=== PATIENT | female | born 1980 | race Caucasian/White ===

== ENCOUNTER 2022-02-17 12:45 | Outpatient (CLI) | payer BC, SELFPAY ==
[2022-02-17 10:13] LABS: Cholesterol* 187 mg/dL (90-199); Glucose* 89 mg/dL (60-115); Triglycerides* 87 mg/dL (40-149)
[2022-02-17 10:14] LABS: HDL Cholesterol* 81 mg/dL (>=50); LDL Cholesterol Calculated 89 mg/dL (<100)
== END 2022-02-17 12:46 | disposition home or self-care (01) ==
PROVIDERS: PCP Family Medicine; Visit Provider Family Medicine
DX: Z13.6 Encounter for screening for cardiovascular disorders (principal); Z13.1 Encounter for screening for diabetes mellitus
CPT/HCPCS: 80061; 82947

== ENCOUNTER 2022-07-22 17:38 | Emergency (ER) | payer MEDICAID, SELFPAY ==
[2022-07-22 17:51] VITALS: BP 108/62; PULSE 79; RESP 16; TEMP 36.6; O2SAT 100; BMI 22.2
--- NOTE | 2022-07-22 18:06 | ED.GENADULT ---
HPI - General Adult General Date Seen: 07/22/22 Chief complaint: Nausea/Vomiting Stated complaint: Vomiting Time Seen by Provider: 07/22/22 17:49 Source: patient Mode of arrival: ambulatory Limitations: no limitations History of Present Illness HPI narrative: Patient is a 42-year-old female who awoke this morning with a migraine. She took her Imitrex and try to go back to sleep. She then began vomiting and has been able to stop throughout the day today. She has taken Tylenol with no relief. She has not been to the ER for migraine in three or four years. She has had no fevers or chills. No other symptoms of illness. No abdominal pain. Related Data Previous Rx's Medication Instructions Recorded sumatriptan succinate 100 mg tablet 100 mg PO .PRN PRN migraine 02/24/22 headache #9 tabs sertraline 100 mg tablet 100 mg PO QDAY #90 tabs 05/05/22 ondansetron 8 mg disintegrating 8 mg PO Q8H PRN nausea and 07/22/22 tablet vomiting #20 tabs Allergies Allergy/AdvReac Type Severity Reaction Status Date / Time aspirin Allergy Intermediate Hives Verified 07/22/22 17:51 ibuprofen Allergy Intermediate Hives Verified 07/22/22 17:51 salicylates Allergy Mild Hives Verified 07/22/22 17:51 Review of Systems Narrative: Review of systems is as outlined above otherwise noted to be negative. She does have anxiety and depression and takes sertraline for that. PFSH PFS Medical History Anxiety (12/01/11) Depression Migraine syndrome Ovarian cyst (01/12/09) Tobacco use (01/12/09) Surgical History (Updated 07/22/22 @ 18:07 by Atif Connell MD) H/O nasal septoplasty S/P (01/12/09) Wrist fracture Social History Smoking Status: Former smoker Little interest or pleasure in doing things: several days Feeling down, depressed, or hopeless: several days Exam Narrative: Exam Narrative: Vitals noted. HEENT: Conjunctiva clear. Neck is supple without adenopathy. Lungs: Clear to auscultation in all lopez. No wheezes, rales, rhonchi. Heart: Regular rate and rhythm without murmur. Abdomen: Soft and nontender. No guarding, rigidity, rebound. Bowel sounds are normal. No palpable masses. Extremities: No cyanosis or edema. Good distal pulses. Skin: No abnormalities noted of the exposed skin. Neurologic: Awake, alert, fully oriented. Neurologic exam is nonfocal. Const: Vital Signs, click to edit/add: Vital Signs - 24 hr 07/22/22 17:51 07/22/22 19:26 Temperature 98 F Pulse Rate [Pulse Oximeter] 79 68 Respiratory Rate 16 18 Blood Pressure [Ri t Upper Arm] 108/62 110/68 Pulse Oximetry 100 98 Oxygen Delivery Me thod Room Air Nasal Cannula Course Course Hospital Course: Patient was seen and examined. No indication for labs or imaging at this point. IV is established she is given a L of normal saline. She is allergic to Toradol and other NSAIDs. She is given fentanyl 50 mcg IV along with a L of normal saline and Zofran 4 mg IV. Reevaluation(s) Reevaluation #1: Patient's nausea and headache have resolved and she was sleeping in the exam room. Her daughter will take her home and get her to bed. I have sent some Zofran to her pharmacy to fill tomorrow. Vital Signs Vital signs: Initial Vital Signs Temperature 98 F 07/22/22 17:51 Temperature Source Temporal Artery Scan 07/22/22 17:51 Pulse Rate 79 07/22/22 17:51 Respiratory Rate 16 07/22/22 17:51 Blood Pressure 108/62 07/22/22 17:51 Blood Pressure Mean 77 07/22/22 17:51 Blood Pressure Position Sitting 07/22/22 17:51 Pulse Oximetry 100 07/22/22 17:51 Oxygen Delivery Method 07/22/22 17:51 Vital Signs Temperature 98 F 07/22/22 17:51 Pulse Rate 79 07/22/22 17:51 Respiratory Rate 16 07/22/22 17:51 Blood Pressure 108/62 07/22/22 17:51 Pulse Oximetry 100 07/22/22 17:51 Oxygen Delivery Method 07/22/22 17:51 Temperature 98 F 07/22/22 17:51 Pulse Rate 68 07/22/22 19:26 Respiratory Rate 18 07/22/22 19:26 Blood Pressure 110/68 07/22/22 19:26 Pulse Oximetry 98 07/22/22 19:26 Oxygen Delivery Method 07/22/22 19:26 Medical Decision Making MDM Narrative Medical decision making narrative: She has a typical migraine with nausea and vomiting. Treatment resolved with pain medicine, IV fluids, Zofran. She will go home and go to bed. Zofran has been sent for pharmacy. Discharge Plan Discharge Clinical Impression: Migraine syndrome Patient Disposition: Home, Self-Care Condition: Improved Instructions: Migraine Headache (ED) Additional Instructions: Go home and try to go to sleep. Continue use of Imitrex as needed. Zofran 8 mg every 8 hours as needed for nausea. Follow-up in the clinic if symptoms are not improving. Prescriptions: New ondansetron 8 mg tablet,disintegrating 8 mg PO Q8H PRN (Reason: nausea and vomiting) Qty: 20 0RF No Action sumatriptan succinate 100 mg tablet 100 mg PO .PRN PRN (Reason: migraine headache) Qty: 9 11RF sertraline 100 mg tablet 100 mg PO QDAY Qty: 90 3RF Follow Up/Referrals: Roby Flores MD [Primary Care Provider] - Stand Alone Forms: [employer] [facility] Info Instructions
[2022-07-22] MEDS: 0.9 % SODIUM CHLORIDE 1000 ml 1,000 ML IV (18:33)
[2022-07-22] MEDS: ONDANSETRON 2 MG/ML inj 4 MG IVP (18:33)
[2022-07-22 19:26] VITALS: BP 110/68; PULSE 68; RESP 18; O2SAT 98
== END 2022-07-22 19:32 | disposition home or self-care (01) ==
PROVIDERS: Emergency Provider Family Medicine; PCP Family Medicine
DX: G43.909 Migraine, unspecified, not intractable, without status migrainosus (principal)
CPT/HCPCS: 96374; 99282; 99283; J2405; J7030

== ENCOUNTER 2023-04-21 19:15 | Outpatient (CLI) | payer BC, SELFPAY ==
--- NOTE | 2023-04-21 19:30 | CRLHL7_ITS ---
For Patients: As a result of the Century Cures Act, medical imaging exams and procedure reports are released immediately into your electronic medical record. You may view this report before your referring provider. If you have questions, please contact your health care provider. BILATERAL SCREENING MAMMOGRAM WITH COMPUTER-AIDED DETECTION AND TOMOSYNTHESIS TECHNIQUE: CC and MLO views were obtained. These mammographic images have been obtained using full-field digital technique. These mammographic images were interpreted with the benefit of computer-aided detection. Breast Tomosynthesis was used in this interpretation. COMPARISON FILM: Baseline. FINDINGS: The breasts are extremely dense, which lowers the sensitivity of mammography IMPRESSION: There is no radiographic evidence for malignancy. ASSESSMENT: BI-RADS Category 1: Negative RECOMMENDATION: Routine screening mammogram in 1 year. A lay language report of this examination will be provided to the patient. Atif Chen M.D. Diagnostic Radiologist [email or web address] [email or web address] Transcribed: 6:35 p.john araiza/Dictated by: Atif Chen MD @ 04/22/2023 12:43:00 PM (Electronically Signed)
== END 2023-04-21 19:16 | disposition home or self-care (01) ==
LOC: MAMMO 19:16
PROVIDERS: PCP Family Medicine; Visit Provider Family Medicine
DX: Z12.31 Encounter for screening mammogram for malignant neoplasm of breast (principal); R92.2 Inconclusive mammogram
CPT/HCPCS: 77063; 77067

== ENCOUNTER 2023-07-18 12:14 | Emergency (ER) | payer BC, SELFPAY ==
[2023-07-18] VITALS (19 sets, daily range): BP systolic 100–105; BP diastolic 53–70; PULSE 48–80; RESP 24; TEMP 36.8; O2SAT 97–100; BMI 23.2
--- NOTE | 2023-07-18 12:40 | ED_ITS ---
HPI - General Adult General Chief complaint: Nausea/Vomiting Stated complaint: vomiting Time Seen by Provider: 07/18/23 12:16 History of Present Illness HPI narrative: c/o headache , my spine feels like there is a knife going into it and cant stop throwing up 43-year-old woman presenting to the emergency department with complaint of a headache. She feels like there is a knife at the base of her head. This is atypical and has her concerned. Admittedly has had pain in this area for months maybe years. Does have a history of migraines and tried her Imitrex. Has not had any fever or new rash. There has been no trauma. Concern of what might be going on in the neck and they are asking for further exam I believe this to mean imaging of the neck/base of the skull. No weakness is into her upper extremities. Is not feeling short of breath. No visual disturbances. Related Data Home Medications Medication Instructions Recorded Confirmed multivitamin (Daily Multi-Vitamin 1 tab PO QDAY 07/23/23 07/23/23 tablet) Previous Rx's Medication Instructions Recorded sumatriptan succinate 100 mg tablet 100 mg PO .PRN PRN migraine 05/14/23 headache #9 tabs bupropion HCl 150 mg 24 hr tablet, 150 mg PO QAM #90 tabs 07/14/23 extended release Allergies Allergy/AdvReac Type Severity Reaction Status Date / Time aspirin Allergy Intermediate Hives Verified 07/23/23 10:05 ibuprofen Allergy Intermediate Hives Verified 07/23/23 10:05 salicylates Allergy Mild Hives Verified 07/23/23 10:05 Review of Systems Status of ROS: Reports: 6 or more systems reviewed and unremarkable except as noted in History and below [facility] Medical History (Updated 07/23/23 @ 11:51 by Roby Flores MD) Depression ?F32.A - Depression, unspecified (ICD-10) Tobacco use (01/12/09) ?Z72.0 - Tobacco use (ICD-10) Ovarian cyst (01/12/09) ?N83.209 - Unspecified ovarian cyst, unspecified side (ICD-10) Anxiety (12/01/11) ?F41.9 - Anxiety disorder, unspecified (ICD-10) Migraine syndrome ?G43.909 - Migraine, unspecified, not intractable, without status migrainosus (ICD-10) Surgical History (Updated 07/22/22 @ 18:07 by Atif Connell MD) H/O nasal septoplasty ?Z98.890 - Other specified postprocedural states (ICD-10) Wrist fracture ?S62.109A - Fracture of unspecified carpal bone, unspecified wrist, initial encounter for closed fracture (ICD-10) S/P (01/12/09) ?Z98.891 - History of uterine scar from previous surgery (ICD-10) Social History (Updated 05/14/23 @ 16:33 by Sanna Smith ~ [facility]) What is your current living situation?: I presently have a place to live Problems where you live: no known problems In the past 12 months, utilities in danger of being shut off: no In past 12 months, lack of transportation kept you from medical appts, meetings, work, or getting things needed for daily living: no In the past 12 mos, have been you worried that your food would run out before you had money to buy more?: never true In the past 12 mos, the food you bought just didn't last and you didn't have money to buy more?: never true Smoking Status: Former smoker Do you use any of these nicotine containing products: Vaping Products How often do you have a drink containing alcohol: 4 or more times a week AUDIT-C Alcohol total score: 4 Non-prescribed substance use: denies use How often does anyone, including family, friends and others, physically hurt you : never How often does anyone, including family, friends and others, insult or talk down to you: never How often does anyone, including family, friends and others, threaten you with harm: never How often does anyone, including family, friends and others, scream or curse at you: never Little interest or pleasure in doing things: several days Feeling down, depressed, or hopeless: several days Exam Narrative: Exam Narrative: Seems to want to be still. Clearly uncomfortable. Head is atraumatic. Cranial nerves 2-12 intact. Demonstrating photophobia. Pupils are 3 mm and equal and appropriately reactive. Transitions gingerly. Does have some limitation of movement of her head/rotation to the left versus the right. No midline neck tenderness. Most tenderness appears to be in the paracervical and trapezial to periscapular musculature left greater than right. Sore also at the occipital insertions. Breathing easily. Heart in regular rate and rhythm. No facial swelling erythema tenderness. Temporal areas look to be normal without pulsatile swelling. Const: Vital Signs, click to edit/add: Vital Signs - 24 hr 07/18/23 12:28 07/18/23 12:42 07/18/23 12:45 Temperature 98.2 F Pulse Rate 80 48 L Pulse Rate [Pulse Oximeter] 70 Respiratory Rate 24 Blood Pressure [Ri ght Upper Arm] 105/70 Pulse Oximetry 100 100 100 Documenting provider has reviewed patient's vital signs: yes Course Vital Signs Vital signs: Initial Vital Signs Temperature 98.2 F 07/18/23 12:28 Temperature Source Temporal Artery Scan 07/18/23 12:28 Pulse Rate 70 07/18/23 12:28 Respiratory Rate 24 07/18/23 12:28 Blood Pressure 105/70 07/18/23 12:28 Blood Pressure Mean 81 07/18/23 12:28 Blood Pressure Position Semi-Fowlers 07/18/23 12:28 Pulse Oximetry 100 07/18/23 12:28 Vital Signs Temperature 98.2 F 07/18/23 12:28 Pulse Rate 70 07/18/23 12:28 Respiratory Rate 24 07/18/23 12:28 Blood Pressure 105/70 07/18/23 12:28 Pulse Oximetry 100 07/18/23 12:28 Temperature 98.2 F 07/18/23 12:28 Pulse Rate 80 07/18/23 18:00 Respiratory Rate 24 07/18/23 12:28 Blood Pressure 100/53 L 07/18/23 13:02 Pulse Oximetry 100 07/18/23 18:00 Medications Administered Medications: Discontinued Medications Generic Name Dose Route Start Last Admin Trade Name Freq PRN Reason Stop Dose Admin Dexamethasone 10 mg 07/18/23 13:00 07/18/23 13:37 Dexamethasone 10 Mg/Ml Inj PO 07/18/23 13:01 10 mg ONCE ONE Administration Diphenhydramine HCl 12.5 mg 07/18/23 13:00 07/18/23 13:36 Diphenhydramine 50 Mg/Ml Inj IVP 07/18/23 13:01 12.5 mg ONCE ONE Administration Sodium Chloride 1,000 mls @ 1,000 mls/hr 07/18/23 13:00 07/18/23 14:12 0.9 % Sodium Chloride 1000 Ml IV 07/18/23 13:59 Infused .Q1H ONE Infusion Lactated Ringer's 1,000 mls @ 1,000 mls/hr 07/18/23 14:04 07/18/23 15:20 Lactated Ringers 1000 Ml IV 07/18/23 15:03 Infused .Q1H ONE Infusion Ketamine HCl 20 mg/ Sodium 100.2 mls @ 200.4 mls/hr 07/18/23 16:00 07/18/23 17:14 Chloride IVPB 07/18/23 16:01 Infused ONCE ONE Infusion Lorazepam 0.5 mg 07/18/23 13:00 07/18/23 13:36 Lorazepam 2 Mg/Ml Inj IVP 07/18/23 13:01 0.5 mg ONCE ONE Administration Ondansetron HCl 4 mg 07/18/23 13:00 07/18/23 13:36 Ondansetron 2 Mg/Ml Inj IVP 07/18/23 13:01 4 mg ONCE ONE Administration Medical Decision Making MDM Narrative Medical decision making narrative: I do suspect tension headache. They were concerned about some other etiology given differences to usual headache. There may be some facet issue here. Other than general soreness is not exhibiting meningeal signs. I think less likely also bleed given history Offered to treat her headache. Initiated on IV fluids. With cervical spine potentially involved perhaps steroid would be beneficial here. Initiated on IV fluids, dexamethasone, Zofran and lorazepam as I think muscle tension big part of what she is experiencing. Still with a good deal of pain on reassessment. I have also ordered for CT of cervical spine. Did offer injection of anesthetic into muscular areas most sensitive. Cervical spine CT is reviewed by me in I feel that there is some spurring in lower cervical spine. I suppose this could be contributing to her symptoms. Radiology over-read as below Final Report: INDICATION: Upper cervical base of skull pain. COMPARISON: None. TECHNIQUE: Multidetector imaging cervical spine with axial, coronal and sagittal formats. Some motion degrades image quality. FINDINGS: Anatomic alignment. Minimal disc height loss and minimal osteophytes C5-6 and C6-C7. No central canal narrowing. No bony encroachment of neural foramina. Facets look normal. Prevertebral soft tissues look normal. No finding of significance in the visualized lung apices. Scattered punctate foci of air throughout the field of view likely from IV access. IMPRESSION: Within some limitation of motion, no acute finding of significance. With continued pain did offer ketamine infusion. And on reassessment have improvement of her pain but felt that was still present. Wanted to depart the ER. See patient discharge plan for further discussion. Discharge Plan Discharge Clinical Impression: Migraine Patient Disposition: Home w/ Parent or Adult Condition: Improved Additional Instructions: I am happy you are feeling better. Admittedly not completely free of pain. Hopefully you can rest. It may be that there is something in your neck that is contributing to inflammation resulting in further headache. You do have some imaging here to review with your primary care provider. I would follow-up with them to discuss further treatment of your headache. You might benefit from injections or even physical therapy. In the meantime do stay active. I think stretching of the neck with gentle pulldowns throughout the day otherwise see handout for exercises for the upper back that you might do once or twice daily. Stay well-hydrated. Applying a lidocaine patch to the area of pain in your neck might be something you could consider. These are now available [id number] Prescriptions: No Action multivitamin [Daily Multi-Vitamin] Tablet 1 tab PO QDAY sumatriptan succinate 100 mg tablet 100 mg PO .PRN PRN (Reason: migraine headache) Qty: 9 11RF bupropion HCl 150 mg tablet extended release 24 hr 150 mg PO QAM Qty: 90 3RF Follow Up/Referrals: Roby Flores MD [Primary Care Provider] - Stand Alone Forms: [employer] Info Instructions
[2023-07-18] MEDS: 0.9 % SODIUM CHLORIDE 1000 ml 1,000 ML IV (13:10)
--- NOTE | 2023-07-18 13:13 | CT_ITS ---
Final Report Patient: KATIE BOONE Facility:?[facility] Patient ID:?[id number] Site Patient ID:?[id number]. Site :?[id number] Study:?CT Spine Cervical WITHOUT-07/18/2023 1:33:15 PM Ordering Physician:JANIE Final Report: INDICATION: Upper cervical base of skull pain. COMPARISON: None. TECHNIQUE: Multidetector imaging cervical spine with axial, coronal and sagittal formats. Some motion degrades image quality. FINDINGS: Anatomic alignment. Minimal disc height loss and minimal osteophytes C5-6 and C6-C7. No central canal narrowing. No bony encroachment of neural foramina. Facets look normal. Prevertebral soft tissues look normal. No finding of significance in the visualized lung apices. Scattered punctate foci of air throughout the field of view likely from IV access. IMPRESSION: Within some limitation of motion, no acute finding of significance. Please note that all CT scans at this facility use dose modulation, iterative reconstruction, and/or weight-based dosing when appropriate to reduce radiation dose to as low as reasonably achievable. Dictated by Jv Tillman MD @ 07/18/2023 1:48:14 PM (Electronic Signature)
[2023-07-18] MEDS: diphenhydrAMINE 50 MG/ML inj 12.5 MG IVP (13:36)
[2023-07-18] MEDS: LORazepam 2 MG/ML inj 0.5 MG IVP (13:36)
[2023-07-18] MEDS: ONDANSETRON 2 MG/ML inj 4 MG IVP (13:36)
[2023-07-18] MEDS: dexAMETHasone 10 MG/ML inj PO (13:37)
[2023-07-18] MEDS: LACTATED RINGERS 1000 ML 1,000 ML IV (14:12)
[2023-07-18] MEDS: KETAMINE 50 MG/0.5 ML 20 MG in 0.9 % SODIUM CHLORIDE 100 ml 100 ML 200.4 MG IVPB (16:40)
== END 2023-07-18 18:47 | disposition home or self-care (01) ==
PROVIDERS: Emergency Provider Family Medicine; PCP Family Medicine
DX: G43.909 Migraine, unspecified, not intractable, without status migrainosus (principal)
CPT/HCPCS: 72125; 96365; 96375; 99284; J1100; J1200; J2060; J2405; J3490; J7030; J7120

== ENCOUNTER 2023-07-29 07:38 | Outpatient (CLI) | payer BC, SELFPAY ==
[2023-07-29 11:42] LABS: Chlamydia DNA Amplified* NOT DETECTED (No Detected); GC DNA Amplified* NOT DETECTED (No Detected)
== END 2023-07-29 07:39 | disposition home or self-care (01) ==
LOC: NFLDREF 07:38
PROVIDERS: PCP Family Medicine; Visit Provider Family Medicine
DX: N89.8 Other specified noninflammatory disorders of vagina (principal); Z11.3 Encounter for screening for infections with a predominantly sexual mode of transmission
CPT/HCPCS: 87491; 87591

== ENCOUNTER 2024-03-13 19:36 | Emergency (ER) | payer BC, SELFPAY ==
[2024-03-13 19:40] VITALS: BP 113/72; PULSE 80; RESP 18; TEMP 36.4; O2SAT 100; BMI 24.2
--- NOTE | 2024-03-13 19:53 | ED.GENADULT ---
HPI - General Adult General Date Seen: 03/13/24 Chief complaint: Headache/Migraine Stated complaint: Migraine Time Seen by Provider: 03/13/24 19:52 History of Present Illness HPI narrative: 44-year-old female with a history of migraine headaches, tension headaches, depression, anxiety, hearing loss, tobacco use presenting to the ER today with a bad migraine that began this morning. Her current headache started this morning. She normally takes Imitrex for her migraines but today has had too much nausea and vomiting and has not been able to keep it down. She has a history of migraine headaches. They typically present as her headache did today with a frontal unilateral headache that subsequently spread to become bifrontal and then to the back of her head. Often she also gets a lot of neck pain with her headaches. Her headache began this morning when she woke up and was similar in onset and location to her previous migraines. Her headaches are often associated with nausea or vomiting. This headache is worse than normal because of the mono nausea and vomiting she has had. She normally is able to take her sumatriptan Triptan and get it to go away. Today she cannot keep her sumatriptan down. Her headaches been ongoing all day. She does not have any recent head injury. No fever or chills. No neck stiffness. No focal numbness or weakness in her arms or legs. No visual scotomata or aura. No visual field loss. No confusion. No trouble walking (allowing for the fact that she has a headache). She is having photosensitivity. Related Data Home Medications ?Medication ?Instructions ?Recorded ?Confirmed multivitamin (Daily Multi-Vitamin 1 tab PO QDAY 07/23/23 07/29/23 tablet) Previous Rx's ?Medication ?Instructions ?Recorded sumatriptan succinate 100 mg tablet 100 mg PO .PRN PRN migraine 05/14/23 headache #9 tabs bupropion HCl 150 mg 24 hr tablet, 150 mg PO QAM #90 tabs 07/14/23 extended release Allergies Allergy/AdvReac Type Severity Reaction Status Date / Time aspirin Allergy Intermediate Hives Verified 03/13/24 19:44 ibuprofen Allergy Intermediate Hives Verified 03/13/24 19:44 salicylates Allergy Mild Hives Verified 03/13/24 19:44 [facility] Medical History (Updated 03/13/24 @ 22:37 by Luis Lopez MD) Depression ?F32.A - Depression, unspecified (ICD-10) Tobacco use (01/12/09) ?Z72.0 - Tobacco use (ICD-10) Ovarian cyst (01/12/09) ?N83.209 - Unspecified ovarian cyst, unspecified side (ICD-10) Anxiety (12/01/11) ?F41.9 - Anxiety disorder, unspecified (ICD-10) Migraine syndrome ?G43.909 - Migraine, unspecified, not intractable, without status migrainosus (ICD-10) Surgical History (Updated 07/22/22 @ 18:07 by Atif Connell MD) H/O nasal septoplasty ?Z98.890 - Other specified postprocedural states (ICD-10) Wrist fracture ?S62.109A - Fracture of unspecified carpal bone, unspecified wrist, initial encounter for closed fracture (ICD-10) S/P (01/12/09) ?Z98.891 - History of uterine scar from previous surgery (ICD-10) Social History (Updated 05/14/23 @ 16:33 by Sanna Smith ~ [facility]) What is your current living situation?: I presently have a place to live Problems where you live: no known problems In the past 12 months, utilities in danger of being shut off: no In past 12 months, lack of transportation kept you from medical appts, meetings, work, or getting things needed for daily living: no In the past 12 mos, have been you worried that your food would run out before you had money to buy more?: never true In the past 12 mos, the food you bought just didn't last and you didn't have money to buy more?: never true Smoking Status: Former smoker Do you use any of these nicotine containing products: Vaping Products How often do you have a drink containing alcohol: 4 or more times a week AUDIT-C Alcohol total score: 4 Non-prescribed substance use: denies use How often does anyone, including family, friends and others, physically hurt you: never How often does anyone, including family, friends and others, insult or talk down to you: never How often does anyone, including family, friends and others, threaten you with harm: never How often does anyone, including family, friends and others, scream or curse at you: never Little interest or pleasure in doing things: several days Feeling down, depressed, or hopeless: several days Exam Narrative: Exam Narrative: Constitutional: Appears well-developed and well-nourished. Awake but has the lights off in her room because she is photosensitive. Able to answer questions and is nontoxic.. Non-toxic appearing. HENT: Head: Atraumatic. No signs of injury. No depressed skull fracture, Raccoon Eyes, Vega's sign, or hemotympanum. Face normal. TMs normal Nose: No nasal discharge. Mouth/Throat: Mucous membranes are moist. Pharynx is normal. Tonsils symmetric. Uvula midline. Airway patent. Eyes: Conjunctivae normal and EOM are normal. Pupils are equal, round, and reactive to light. Right eye exhibits no discharge. Left eye exhibits no discharge. No icterus. Neck: Normal range of motion. Neck supple. No adenopathy. No stridor. Cardiovascular: Normal rate and regular rhythm. No murmur heard. No murmurs, rubs, or gallops. Brisk capillary refill Pulmonary/Chest: Effort normal. No stridor. No respiratory distress. No wheezes.No rhonchi. No rales. No retractions. Abdominal: Soft. Bowel sounds are normal. No distension. No mass. There is no tenderness. There is no rebound and no guarding. Musculoskeletal: Normal range of motion. No edema. No tenderness. No deformity. Neurological: Alert. Normal strength. No cranial nerve deficit or sensory deficit. Coordination normal. GCS eye subscore is 4. GCS verbal subscore is 5. GCS motor subscore is 6. Skin: Skin is warm. No rash noted. Const: Vital Signs, click to edit/add: Vital Signs - 24 hr 03/13/24 19:40 03/13/24 22:02 Temperature 97.6 F Pulse Rate [Right Pulse Oximeter] 80 73 Respiratory Rate 18 16 Blood Pressure [Ri ght Upper Arm] 113/72 102/55 L Pulse Oximetry 100 99 Oxygen Delivery Me thod Room Air Room Air Course Course ED Course: [id number]. Headache slightly improved after Compazine and Benadryl. Drowsy after Benadryl. Nausea improved but headache is not. Needs more medications. Zyprexa and Decadron ordered. Given her vomiting throughout the day will also give her a bolus of saline (500 mL, given current patient wide saline shortage) Reevaluation(s) Reevaluation #1: Recheck-headache improved after Zyprexa. Patient says she still has some headache but overall is improved. She does not want any more pain medication. She thinks if she can discharge home she will be able to sleep and feel better. Nausea is much improved. Vital Signs Vital signs: Initial Vital Signs Temperature 97.6 F 03/13/24 19:40 Temperature Source Temporal Artery Scan 03/13/24 19:40 Pulse Rate 80 03/13/24 19:40 Pulse Rhythm Regular 03/13/24 19:40 Pulse Strength 3+ Normal 03/13/24 19:40 Respiratory Rate 18 03/13/24 19:40 Blood Pressure 113/72 03/13/24 19:40 Blood Pressure Mean 85 03/13/24 19:40 Blood Pressure Position Sitting 03/13/24 19:40 Pulse Oximetry 100 03/13/24 19:40 Oxygen Delivery Method Room Air 03/13/24 19:40 Vital Signs Temperature 97.6 F 03/13/24 19:40 Pulse Rate 80 03/13/24 19:40 Respiratory Rate 18 03/13/24 19:40 Blood Pressure 113/72 03/13/24 19:40 Pulse Oximetry 100 03/13/24 19:40 Oxygen Delivery Method Room Air 03/13/24 19:40 Temperature 97.6 F 03/13/24 19:40 Pulse Rate 73 03/13/24 22:02 Respiratory Rate 16 03/13/24 22:02 Blood Pressure 102/55 L 03/13/24 22:02 Pulse Oximetry 99 03/13/24 22:02 Oxygen Delivery Method Room Air 03/13/24 22:02 Medications Administered Medications: Discontinued Medications Generic Name Dose Route Start Last Admin Trade Name Freq PRN Reason Stop Dose Admin Dexamethasone 4 mg 03/13/24 21:41 03/13/24 21:55 Dexamethasone 4 Mg/Ml Vial IV 03/13/24 21:42 4 mg ONCE ONE Administration Diphenhydramine HCl 12.5 mg 03/13/24 19:54 03/13/24 21:03 Diphenhydramine 50 Mg/Ml Inj IVP 03/13/24 19:55 12.5 mg ONCE ONE Administration Sodium Chloride 500 mls @ 500 mls/hr 03/13/24 21:41 03/13/24 22:28 0.9 % Sodium Chloride 500 Ml IV 03/13/24 22:40 Infused .Q1H ONE Infusion Olanzapine 2.5 mg 03/13/24 21:41 03/13/24 21:58 Olanzapine 5 Mg/Ml Inj IVP 03/13/24 21:42 2.5 mg ONCE ONE Administration Prochlorperazine 10 mg 03/13/24 19:54 03/13/24 21:03 Prochlorperazine 5 Mg/Ml Vial IV 03/13/24 19:55 10 mg ONCE ONE Administration Medical Decision Making MDM Narrative Medical decision making narrative: Ths patient presents with a headache. A broad differential diagnosis was considered including tension, migraine, analgesic rebound, occipital neuralgia, etc. Other less common but serious causes considered included meningitis, encephalitis, subarachnoid bleed, stroke, tumor, etc. headache is similar in onset, location, and character to her previous migraines. It is associated with a lot more nausea than normal so she has not been able to take her normal meds at home. The patient has no signs of serious headache etiologies at this point. No advanced imaging is indicated, nor is CT/lumbar puncture for SAH. Patient's questions were answered and they feel improved after above interventions in ED. headache is not resolved but it is better and she is requesting discharge home without any further meds. Supportive outpatient management is therefore indicated. Headache precautions given for home. Discharge Plan Discharge Clinical Impression: Headache Patient Disposition: Home, Self-Care Condition: Stable Instructions: Acute Headache (DC) Additional Instructions: As we discussed, if your headache comes back we of in other concerns such as fever, neck pain, uncontrolled nausea vomiting, or if you experience any other problems please come back to the ER right away The medications were given here in the ER tonight will make you drowsy. Do not drive a motor vehicle or operate machinery for at least 6 hours. Prescriptions: No Action multivitamin [Daily Multi-Vitamin] Tablet 1 tab PO QDAY sumatriptan succinate 100 mg tablet 100 mg PO .PRN PRN (Reason: migraine headache) Qty: 9 11RF bupropion HCl 150 mg tablet extended release 24 hr 150 mg PO QAM Qty: 90 3RF Follow Up/Referrals: Roby Flores MD [Primary Care Provider] - Stand Alone Forms: Bubbli Info Instructions
[2024-03-13] MEDS: diphenhydrAMINE 50 MG/ML inj 12.5 MG IVP (21:03)
[2024-03-13] MEDS: PROCHLORPERAZINE 5 MG/ML VIAL 10 MG IV (21:03)
[2024-03-13] MEDS: 0.9 % SODIUM CHLORIDE 500 ML 500 ML IV (21:53)
[2024-03-13] MEDS: dexAMETHasone 4 MG/ML VIAL IV (21:55)
[2024-03-13] MEDS: OLANZapine 5 MG/ML inj 2.5 MG IVP (21:58)
[2024-03-13 22:02] VITALS: BP 102/55; PULSE 73; RESP 16; O2SAT 99
== END 2024-03-13 22:47 | disposition home or self-care (01) ==
PROVIDERS: Emergency Provider Emergency Medicine; PCP Family Medicine
DX: R51.9 Headache, unspecified (principal)
CPT/HCPCS: 96374; 96375; 99283; J0780; J1100; J1200; J7030

== ENCOUNTER 2024-06-06 10:14 | Outpatient (CLI) | payer BC, SELFPAY ==
--- NOTE | 2024-06-06 11:18 | P.ANES_ITS ---
Anesthesia Charges Start Date/Time Anesthesia Start Date: 06/06/24 Anesthesia Start Time: 10:45 Stop Date/Time Anesthesia Stop Date: 06/06/24 Anesthesia Stop Time: 11:17 Coding CPT Codes CPT Codes: ANES LWR INTST SCR COLSC - 17891 ([id number]) P2 - PATIENT W/MILD SYST DISEASE, QZ - MOVEMENT ASSEMBLY FINAL INSPECTOR SVC W/O CLIP LOADING MACHINE ADJUSTER BY
--- NOTE | 2024-06-06 11:18 | W.ANESCHARGE ---
Anesthesia Charges Start Date/Time Anesthesia Start Date: 06/06/24 Anesthesia Start Time: 10:45 Stop Date/Time Anesthesia Stop Date: 06/06/24 Anesthesia Stop Time: 11:17 Coding CPT Codes CPT Codes: ANES LWR INTST SCR COLSC - 83904 ([id number]) P2 - PATIENT W/MILD SYST DISEASE, QZ - GYM ATTENDANT SVC W/O CALIBRATION LABORATORY TECHNICIAN BY
== END 2024-06-06 10:15 | disposition home or self-care (01) ==
PROVIDERS: PCP Family Medicine; Visit Provider Internal Medicine
DX: Z12.11 Encounter for screening for malignant neoplasm of colon (principal); Q43.8 Other specified congenital malformations of intestine
CPT/HCPCS: 00812; 45378; J2704

== ENCOUNTER 2024-08-23 18:03 | Outpatient (CLI) | payer BC, SELFPAY ==
--- NOTE | 2024-08-23 18:20 | CRLHL7_ITS ---
For Patients: As a result of the Century Cures Act, medical imaging exams and procedure reports are released immediately into your electronic medical record. You may view this report before your referring provider. If you have questions, please contact your health care provider. INDICATION: 3D Screening Mammogram, asymptomatic 44F COMPARISON: 04/21/23 TECHNIQUE: CC and MLO views were obtained. These mammographic images have been obtained using full-field digital technique. These mammographic images were interpreted with the benefit of computer aided detection and tomosynthesis. BREAST COMPOSITION: The breasts are extremely dense, which lowers the sensitivity of mammography. FINDINGS: No suspicious findings. ASSESSMENT: BI-RADS 1 Negative RECOMMENDATION: Annual screening mammogram. A lay language report of this examination will be provided to the patient. Dictated by: Atif Chen MD @ 08/25/2024 11:11:57 (Electronically Signed)
== END 2024-08-23 18:04 | disposition home or self-care (01) ==
LOC: MAMMO 18:03
PROVIDERS: PCP Family Medicine; Visit Provider Family Medicine
DX: Z12.31 Encounter for screening mammogram for malignant neoplasm of breast (principal); R92.343 Mammographic extreme density, bilateral breasts
CPT/HCPCS: 77063; 77067